=== PATIENT | female | born 1955 ===

== ENCOUNTER 2017-07-20 08:35 | Day surgery (SDC) | payer OTHER ==
[2017-07-20 11:14] VITALS: BMI 25.0
[2017-07-20] MEDS ORDERED: Lactated Ringer's 1,000 ML IV ONE (11:22)
[2017-07-20] MEDS ORDERED: Propofol 10 mg/ml Inj (20 ML) ONE (12:24)
[2017-07-20] MEDS ORDERED: Lidocaine 2% MPF (5 ml) Inj ONE (12:25)
[2017-07-20 13:14] VITALS: TEMP 96.8; O2SAT 98
[2017-07-20 13:24] VITALS: BP 91/55; PULSE 75; RESP 16
== END 2017-07-20 13:54 | disposition home or self-care (01) ==
LOC: H.ENDO 08:35
PROVIDERS: ATTEND Internal Medicine Gastroenterology
DX: Z12.11 Encounter for screening for malignant neoplasm of colon (principal); I10 Essential (primary) hypertension; D12.5 Benign neoplasm of sigmoid colon; K63.89 Other specified diseases of intestine
CPT/HCPCS: 45380; 45385; 88305; J2704; J7120

== ENCOUNTER 2017-09-09 10:55 | Emergency (ER) | payer OTHER ==
[2017-09-09 11:01] VITALS: BMI 29.2
--- NOTE | 2017-09-09 11:55 | ED PDOC ---
HPI: Abdomen Chief Complaint (Provider): "adithya been having bloody stools for the last month" History Per: Patient History/Exam Limitations: language barrier (Five minutes# [id number] used for interpretation ) <Darryl Gar - Last Filed: 09/09/17 16:06> <Paras Ojeda - Last Filed: 09/09/17 16:53> Time Seen by Provider: 09/09/17 11:28 Chief Complaint (Nursing): GI Problem Additional Complaint(s): 62 y/o female presents for evaluation of bloody bowel movements. Pt reports she underwent a screening colonoscopy in July and was told she may have some bleeding after the procedure due to some bruises that occured during the exam. She reports the bleeding has been constant with every bowel movement. Last BM was today, it was solid, well formed, but had bright red blood associated with it. BMs have been regular as per pt. She also reports feeling intermittently feverish and just "not herself" for the past couple of weeks. She also reports increasing fatigue since the procedure. Reports mild suprapubic abdominal pain that has started approx 1 week ago as well. Has not taken any medications. She denies any nausea/vomiting/diarrhea/constipation. She does not take any anticoagulation meds. She denies any pain or discomfort associated with meal consumption. Denies CP/SOB/LOZANO/palpitations, urinary symptoms, abnormal uterine bleeding. (Darryl Gar) Supervising Attending Note - Supervising Attending Note The Documented history was done by the: Physician Bed Rubber, Attending Physician The documented physical exam was done by the: Physician Bed Rubber, Attending Physician The documented procedures were done by the: Physician Bed Rubber, Attending Physician - Attestation: I have personally seen and examined this patient.: Yes I have fully participated in the care of the patient.: Yes I have reviewed all pertinent clinical information: Yes <Paras Ojeda - Last Filed: 09/09/17 16:53> Past Medical History Reviewed: Historical Data, Nursing Documentation, Vital Signs - Medical History PMH: HTN Denies: Chronic Kidney Disease - Surgical History Surgical History: Appendectomy, Cholecystectomy - Family History Family History: States: Unknown Family Hx <Darryl Gar - Last Filed: 09/09/17 16:06> Reviewed: Historical Data <Paras Ojeda - Last Filed: 09/09/17 16:53> Vital Signs: Last Vital Signs Temp 98.5 F 09/09/17 16:48 Pulse 73 09/09/17 16:48 Resp 16 09/09/17 16:48 BP 131/85 09/09/17 16:48 Pulse Ox 97 09/09/17 16:48 - Home Medications Home Medications: Ambulatory Orders Medication Instructions Recorded Losartan [Cozaar] 50 mg PO DAILY 07/20/17 - Allergies Allergies/Adverse Reactions: Allergies Allergy/AdvReac Type Severity Reaction Status Date / Time No Known Allergies Allergy Verified 07/20/17 11:14 Review of Systems Constitutional: Positive for: Fever, Chills. Negative for: Sweats, Weakness, Malaise, Weight loss Eyes: Negative for: Vision Change, Conjunctivae Inflammation ENT: Negative for: Ear Pain, Ear Discharge Cardiovascular: Positive for: Light Headedness. Negative for: Chest Pain, Palpitations, Orthopnea, Paroxysmal Noc. Dyspnea, Edema Respiratory: Negative for: Cough, Shortness of Breath, Hemoptysis, SOB with Exertion, Pleuritic Pain, Sputum, Wheezing Gastrointestinal: Positive for: Abdominal Pain, Hematochezia. Negative for: Nausea, Vomiting, Diarrhea, Constipation, Melena, Hematemesis, Rectal Pain Genitourinary Female: Negative for: Dysuria, Frequency, Incontinence, Hematuria , Vaginal Discharge, Vaginal Bleeding, Pelvic Pain Skin: Negative for: Rash, Lesions, Bruising Neurological: Negative for: Weakness, Numbness, Incoordination, Headache, Dizziness Psych: Negative for: Anxiety, Depression <Darryl Gar - Last Filed: 09/09/17 16:06> ROS Statement: Except As Marked, All Systems Reviewed And Found Negative <Paras Ojeda - Last Filed: 09/09/17 16:53> Physical Exam - Reviewed Nursing Documentation Reviewed: Yes Vital Signs Reviewed: Yes - Physical Exam Appears: Positive for: Non-toxic, No Acute Distress Head Exam: Positive for: ATRAUMATIC, NORMAL INSPECTION, NORMOCEPHALIC Skin: Positive for: Normal Color, Warm, Dry. Negative for: Diaphoresis, Pallor , Rash Eye Exam: Positive for: Normal appearance, Other (no subconjuctival pallor ). Negative for: EOMI, PERRL, Conjunctival injection, Scleral icterus ENT: Positive for: Normal ENT Inspection Neck: Positive for: Normal, Painless ROM, Supple Cardiovascular/Chest: Positive for: Regular Rate, Rhythm. Negative for: Chest Non Tender, Edema, Gallop, JVD, Murmur, Tachycardia, Irregularly Irregular Respiratory: Positive for: Normal Breath Sounds. Negative for: Crackles, Rales , Rhonchi, Stridor, Wheezing Pulses-Dorsalis Pedis (L): 2+ Pulses-Dorsalis Pedis (R): 2+ Pulses-Radial (L): 2+ Pulses-Radial (R): 2+ Gastrointestinal/Abdominal: Positive for: Bowel Sounds (normal), Soft. Negative for: Tenderness, Organomegaly, Mass, Distended, Guarding, Hernia Rectal: Positive for: Rectal Tone Is: (normal ), Blood Streaked Stool, Hemorrhoids, Other (gross blood on examination. Nurse used as project management specialist ). Negative for: Black Stool, Tenderness Extremity: Positive for: Normal ROM, Capillary Refill (<2s). Negative for: Tenderness, Pedal Edema Lymphatic: Negative for: Adenopathy Neurologic/Psych: Positive for: Alert, wellness trainer II-XII, Oriented. Negative for: Motor/Sensory Deficits, Gait, Aphasia <Darryl Gar - Last Filed: 09/09/17 16:06> - Laboratory Results Result Diagrams: 09/09/17 12:17 09/09/17 13:20 - ECG O2 Sat by Pulse Oximetry: 99 - Progress Re-evaluation Time: 16:08 Condition: Re-examined, Improved <Darryl Gar - Last Filed: 09/09/17 16:06> - Laboratory Results Result Diagrams: 09/09/17 12:17 09/09/17 13:20 <Paras Ojeda - Last Filed: 09/09/17 16:53> - Progress ED Course And Treament: lower GI Bleed/colitis/ischemia/diverticulitis/UTI -screening colonoscopy from 07/2017 reviewed -vitals table, BP 125/73, no tachycardia cbc: H/H stable, Hb 12.3 retic count: 1.7 cmp: BUN/Cr: 10/0.7 coags: wnl UA: wnl type and screen VGB shock panel: lactate 1.1 CT abd w/ IV contrast EKG 1 L NS re-evaluate Social Circle-Blatchford Score: 0 vitals stable throughout ED stay no hematochezia during stay pt reports feeling better, discussed findings of CT scan and labs pt reports having a follow up appointment with Dr. Zavaleta (GI) in approx 1.5 weeks understood findings and reason for discharge, understood red flag symptoms and when to return to ED (Darryl Gar) Disposition - Patient ED Disposition Is Patient to be Admitted: No - Disposition Disposition: Routine/Home Disposition Time: 16:10 <Darryl Gar - Last Filed: 09/09/17 16:06> Doctor Will See Patient In The: Office Counseled Patient/Family Regarding: Studies Performed, Diagnosis, Need For Followup <Paras Ojeda - Last Filed: 09/09/17 16:53> - Clinical Impression Clinical Impression: Rectal bleeding, Enteritis, Hemorrhoids - Disposition Referrals: Giovany Zavaleta MD [Staff Provider] - Condition: GOOD Additional Instructions: follow up with GI doctor as originally planned drink lots of fluid and monitor for further bleeding if bleeding worsens, or you start feeling more exhausted, lightheaded, have chest pain, or worsening shortness of breath return to ED if any nausea/vomiting/diarrhea with fever return to ED Instructions: Hemorrhoids (DC), Gastrointestinal Bleeding (DC), Bloody Stools, Adult (DC) Forms: [employer] ([place]) Print Language: GEORGIAN
[2017-09-09] MEDS ORDERED: Sodium Chloride 0.9% 1,000 ML IV SCH (12:00)
[2017-09-09 12:33] LABS: VENOUS BLOOD GAS BASE EXCESS 2.2 mmol/L (0.0-2.0); VENOUS BLOOD GAS PCO2 46 mmHg (40-60); VENOUS BLOOD GAS PO2 32 mm/Hg (30-55); VENOUS BLOOD PH 7.39 (7.32-7.43)
[2017-09-09 12:56] LABS: PROTHROMBIN TIME 10.9 Seconds (9.8-13.1)
[2017-09-09 12:58] LABS: HEMOGLOBIN 12.3 g/dL (12.0-16.0); MEAN CELL VOLUME 94.3 fl (81.0-99.0); MEAN CORPUSCULAR HEMOGLOBIN 31.6 pg (27.0-31.0); MEAN CORPUSCULAR HGB CONC 33.5 g/dL (33.0-37.0); RBC 3.9 Mil/uL (3.80-5.20); RED CELL DISTRIBUTION WIDTH 12.7 % (11.5-14.5); WHITE BLOOD COUNT 4.1 K/uL (4.8-10.8)
[2017-09-09 13:42] LABS: ALB/GLOB RATIO 1.1 (1.0-2.1); ALBUMIN 3.7 g/dL (3.5-5.0); ALT/SGPT 46 U/L (9-52); AST/SGOT 28 U/L (14-36); BLOOD UREA NITROGEN 10 mg/dl (7-17); CALCIUM 8.5 mg/dL (8.4-10.2); GFR AFRICAN-AMERICAN > 60; GFR NON-AFRICAN AMERICAN > 60
[2017-09-09] MEDS ORDERED: Iohexol 300 100 ML IJ ONE ×2 (14:08→14:24)
[2017-09-09] MEDS ORDERED: Sodium Chloride 0.9% 100 ML ONE (14:09)
--- NOTE | 2017-09-09 15:45 | CT ---
PROCEDURE: CT Abdomen and Pelvis with contrast HISTORY: Abdominal pain with bleeding COMPARISON: None. TECHNIQUE: CT scan of the abdomen and pelvis was performed after administration of intravenous contrast. Oral contrast was not administered. Coronal and sagittal reformatted images were obtained. Contrast dose: 96 cc Omnipaque 300 Radiation dose: Total exam DLP = 677.77 mGy-cm. This CT exam was performed using one or more of the following dose reduction techniques: Automated exposure control, adjustment of the mA and/or kV according to patient size, and/or use of iterative reconstruction technique. FINDINGS: LOWER THORAX: There is mild subsegmental atelectasis in the lung bases. LIVER: There is mild hepatomegaly and diffuse fatty infiltration in the liver. No gross lesion or ductal dilatation. GALLBLADDER AND BILE DUCTS: Surgically absent. PANCREAS: Normal in size and appearance. No gross lesion or ductal dilatation. SPLEEN: Normal in size and appearance. ADRENALS: No discrete nodules. KIDNEYS AND URETERS: Both kidneys are normal in size with homogeneous enhancement hydronephrosis. No solid mass. VASCULATURE: No aortic aneurysm. BOWEL: There is mild dilatation of fluid-filled proximal small bowel loops. The mid and distal small bowel loops are fluid-filled and normal in caliber. The colon is unremarkable. There is moderate amount of stool scattered in the colon. APPENDIX: No inflammatory changes in the right lower quadrant. PERITONEUM: No free fluid. No free air. LYMPH NODES: No enlarged lymph nodes. BLADDER: Unremarkable. REPRODUCTIVE: Unremarkable. BONES: No acute fracture. Within normal limits for the patient's age. OTHER FINDINGS: None. IMPRESSION: Mildly dilated fluid-filled proximal small bowel loops and normal caliber fluid-filled mid and distal small bowel loops, findings could represent nonspecific enteritis or developing proximal small bowel obstruction. Follow-up is advised. Mild hepatomegaly and fatty liver.
[2017-09-09 16:49] VITALS: BP 131/85; PULSE 73; RESP 16; TEMP 98.5; O2SAT 97
--- NOTE | 2017-09-11 18:24 | CARD ---
APPROVED REPORT EKG Measurement Heart [id number] <Conclusion> Sinus bradycardia Incomplete right bundle branch block Borderline ECG
== END 2017-09-09 16:49 | disposition home or self-care (01) ==
LOC: H.ER 10:55
DX: K64.9 Unspecified hemorrhoids (principal); I10 Essential (primary) hypertension; K52.9 Noninfective gastroenteritis and colitis, unspecified; K62.5 Hemorrhage of anus and rectum
CPT/HCPCS: 74177; 80053; 82803; 85027; 85044; 85610; 86850; 86900; 93005; 96360; 99283; J7040; Q9967